=== PATIENT | male | born 1965 | race Hispanic/Latino ===

== ENCOUNTER 2021-10-16 05:04 | Emergency (ER) | payer BC ==
--- NOTE | 2021-10-16 06:50 | ER ---
Nurse's Notes [facility] Name: Britton De León Age: 56 yrs Sex: Male : 1965 Arrival Date: 10/16/2021 Time: 05:06 Bed Waiting Private MD: Diagnosis: Presentation: 10/16 05:50 Chief complaint: Patient states: my throat is swelling up, I have had this for a week, as6 It pops up in different parts of my body. Coronavirus screen: Vaccine status: Patient reports being unvaccinated. Ebola Screen: No symptoms or risks identified at this time. Onset: The symptoms/episode began/occurred last week. Anaphylaxis evaluation, reports itchy sensation on the left under arm and throat. Initial Sepsis Screen: Does the patient meet any 2 criteria? No. Patient's initial sepsis screen is negative. Does the patient have a suspected source of infection? No. Patient's initial sepsis screen is negative. Risk Assessment: Do you want to hurt yourself or someone else? Patient reports no desire to harm self or others. Onset of symptoms was October 09, 2021. Care prior to arrival: Medication(s) given: Benadryl. 05:50 Method Of Arrival: Ambulatory as6 05:50 Acuity: ELLIS 3 as6 Triage Assessment: 05:59 General: Appears in no apparent distress. uncomfortable, Behavior is calm, cooperative, as6 anxious. Pain: Denies pain. Derm: Rash noted that is red, on left breast, throat. Historical: - Allergies: 05:55 PENICILLINS; as6 05:55 Tetanus Vaccines \T\ Toxoid; as6 - Home Meds: 05:55 atorvastatin 40 mg oral tab [Active]; Vitamin D Oral 50,000 unit [Active]; lisinopril 5 as6 mg Oral tab [Active]; omeprazole 40 mg Oral cpDR [Active]; metformin 1,000 mg Oral tab [Active]; Chrystal 180 mg Oral tab [Active]; aspirin 81 mg Oral cap [Active]; - Immunization history:: Flu vaccine is not up to date. - Social history:: Smoking status: Patient denies any tobacco usage or history of. Vital Signs: 05:50 BP 139 / 97; Pulse 72; Resp 16 S; Temp 98(O); Pulse Ox 96% on R/A; Weight 83.46 kg; as6 Height 5 ft. 5 in. (165.10 cm); Pain 0/10; 05:50 Body Mass Index 30.62 (83.46 kg, 165.10 cm) as6 ED Course: 05:06 Patient arrived in ED. 05:55 Triage completed. 05:58 Arm band placed on. 06:49 Patient notified by registration pr left the lobby. bb Administered Medications: No medications were administered Outcome: 06:50 Patient left the ED. bb Signatures: Cindi Kumar, RN RN bb Kassy Madrid ja2 Willie Covarrubias, RN RN as6
[2021-10-16 07:09] VITALS: BP 139/97; TEMP 98; O2SAT 96
== END 2021-10-16 06:50 | disposition left against medical advice (07) ==
LOC: ER 05:04
DX: Z02.9 Encounter for administrative examinations, unspecified (principal)
CPT/HCPCS: 99281